=== PATIENT | male | born 1975 | race Two or more races ===

== ENCOUNTER 2018-07-24 18:43 | Emergency (ER) | payer BC ==
[~2018-07-24] VITALS: Ht 167.6 cm; Wt 99.8 kg
[2018-07-24 18:45] VITALS: BP 182/112
[2018-07-24] MEDS ORDERED: KETOROLAC 60 MG/2 ML VIAL. IM ONE (19:30)
[2018-07-24] MEDS ORDERED: diazePAM 5 MG TABLET PO ONE (19:30)
[2018-07-24] MEDS ORDERED: ORPH100T PO (20:07)
[2018-07-24] MEDS ORDERED: NAPR-695 PO (20:07)
--- NOTE | 2018-07-24 20:08 | PHYS DOC ---
Past Medical History Past Medical History: Diabetes-Type II, Glaucoma, High Cholesterol, Hypertension, Other Additional Past Medical Histor: GOUT Past Surgical History: Other Additional Past Surgical Histo: R [employer] Alcohol Use: None Drug Use: None Adult General Chief Complaint Chief Complaint: LOWER BACK PAIN OR INJURY [facility] HPI Patient is a 43 year old male who presents to the emergency department with complaints of pain in his right buttock that feels like a charley horse. Patient states yesterday he had right-sided low back pain. He denies any known injury, or recent heavy lifting. He states that the back pain had gone away but it 2:00 this morning he woke up with the severe cramping in his right buttock. Patient states pain increases with movement and states that that the pain radiates into his right leg if he moves his leg. Currently, he reports his pain is a 10 out of 10 on the pain scale, he has been taking ibuprofen with no relief of the pain. Patient denies any recent nausea, vomiting, or diarrhea. He denies any saddle anesthesia, or loss of bowel or bladder control. Review of Systems Review of Systems Constitutional: Denies fever or chills [] Eyes: Denies change in visual acuity, redness, or eye pain [] HENT: Denies nasal congestion or sore throat [] Respiratory: Denies cough or shortness of breath [] Cardiovascular: No additional information not addressed in HPI [] GI: Denies abdominal pain, nausea, vomiting, bloody stools or diarrhea [] : Denies dysuria or hematuria [] Musculoskeletal: Denies back pain or joint pain [] Integument: Denies rash or skin lesions [] Neurologic: Denies headache, focal weakness or sensory changes [] Endocrine: Denies polyuria or polydipsia [] All other systems were reviewed and found to be within normal limits, except as documented in this note. Current Medications Current Medications Current Medications Medications (Trade) Dose Ordered Sig/Bret Start Time Stop Time Status Last Admin Dose Admin Diazepam (Valium) 5 mg 1X ONCE 07/24/18 19:30 07/24/18 19:31 DC 07/24/18 19:30 5 MG Ketorolac Tromethamine (Toradol Im) 60 mg 1X ONCE 07/24/18 19:30 07/24/18 19:31 DC 07/24/18 19:30 60 MG Allergies Allergies Allergies Coded Allergies Type Severity Reaction Last Updated Verified Influenza Virus Vaccines Allergy Intermediate Hives 07/24/18 Yes Physical Exam Physical Exam Constitutional: Well developed, well nourished, mild distress, non-toxic appearance. [] HENT: Normocephalic, atraumatic, bilateral external ears normal, oropharynx moist, no oral exudates, nose normal. [] Eyes: conjunctiva normal, no discharge. [] Neck: Normal range of motion, no stridor. [] Skin: Warm, dry, no erythema, no rash. [] Back: No bony tenderness, positive right straight leg test for increased pain Extremities: No cyanosis, no clubbing, ROM intact, no edema. [] Neurologic: Alert and oriented X 3, normal motor function, normal sensory function, no focal deficits noted. [] Psychologic: Affect normal, judgement normal, mood normal. [] Current Patient Data Vital Signs Vital Signs Date Time Temp Pulse Resp B/P (MAP) Pulse Ox O2 Delivery O2 Flow Rate FiO2 07/24/18 18:45 98.4 107 20 182/112 (135) 98 Room Air 98.4 EKG EKG [] Radiology/Procedures Radiology/Procedures [] Course & Med Decision Making Course & Med Decision Making Pertinent Labs and Imaging studies reviewed. (See chart for details) Patient was given 30 mg of IM Toradol, and 5 mg of by mouth Valium. He reported relief of pain at rest with these medications. Patient continues to report pain with activity however it is better than prior to the medications. Prescriptions are written for naproxen and orphenadrine. Patient verbalized an understanding of home care, medications, follow-up, and return to ED instructions and was in agreement with the plan of care. [] Dragon Disclaimer Dragon Disclaimer This electronic medical record was generated, in whole or in part, using a voice recognition dictation system. Departure Departure Impression: Primary Impression: Sciatica of right side without back pain Disposition: 01 HOME, SELF-CARE Condition: IMPROVED Referrals: UNKNOWN PCP NAME (PCP) Patient Instructions: Sciatica, [id number] Additional Instructions: Fill prescriptions and use as directed. May apply ice or heat to sore area for relief of discomfort. Follow-up with your primary care doctor next week if symptoms persist, return to the ER symptoms worsen. Scripts Naproxen (NAPROXEN) 375 Mg Tablet 375 MG PO BID PRN for PAIN for 10 Days, #20 TAB 0 Refills Prov: DI MCDERMOTT APRN 07/24/18 Orphenadrine Citrate (ORPHENADRINE CITRATE) 100 Mg Tablet.er 100 MG PO BID PRN for PAIN for 10 Days, #20 TAB.SR 0 Refills Prov: DI MCDERMOTT APRN 07/24/18 DI MCDERMOTT APRN Jul 24, 2018 20:07
== END 2018-07-24 20:20 | disposition home or self-care (01) ==
LOC: ER 18:43
DX: M54.31 Sciatica, right side (principal); E11.9 Type 2 diabetes mellitus without complications; E78.00 Pure hypercholesterolemia, unspecified; I10 Essential (primary) hypertension; E11.39 Type 2 diabetes mellitus with other diabetic ophthalmic complication; H40.9 Unspecified glaucoma; Z88.7 Allergy status to serum and vaccine
CPT/HCPCS: 96372; 99283; J1885